=== PATIENT | male | born 1975 | race Caucasian/White ===

== ENCOUNTER 2017-06-01 20:32 | Emergency (ER) | payer MEDICAID, OTHER ==
[~2017-06-01] VITALS: Ht 182.9 cm; Wt 90.7 kg
[2017-06-01] MEDS ORDERED: BACITRACIN TOP OINT 1 UD PKG TOP ONE (21:45)
[2017-06-01 23:00] VITALS: BP 137/86
== END 2017-06-02 00:03 | disposition home or self-care (01) ==
LOC: EDBD 20:32 → EDUNIT# 20:32 → ER 20:32
DX: S52.124A Nondisplaced fracture of head of right radius, initial encounter for closed fracture (principal); S01.81XA Laceration without foreign body of other part of head, initial encounter; S43.401A Unspecified sprain of right shoulder joint, initial encounter; V43.52XA Car driver injured in collision with other type car in traffic accident, initial encounter; Y93.89 Activity, other specified; Y99.8 Other external cause status; Y92.488 Other paved roadways as the place of occurrence of the external cause
CPT/HCPCS: 29105; 70450; 70486; 71010; 72125; 73200

== ENCOUNTER 2020-04-18 19:33 | Inpatient (IN) | payer MEDICAID ==
[~2020-04-18] VITALS: Ht 185.4 cm; Wt 99.7 kg
[2020-04-18] MEDS ORDERED: NOREPINEPHRINE 8 MG/250ML KIT 250 ML IV ONE (19:53)
[2020-04-18] MEDS ORDERED: MIDAZOLAM DRIP 50 mg/50mL 0 ML IV ONE (19:53)
[2020-04-18] MEDS: NOREPINEPHRINE 8 MG/250ML KIT 250 ML IV SCH (20:00)
[2020-04-18] MEDS ORDERED: ATROPINE SULF 0.5 MG/5ML SYR ONE (20:27)
[2020-04-18 20:45] LABS: Albumin 3.3 g/dL (3.4-5.0); Anion Gap 21 (5-15); Blood Urea Nitrogen 18 mg/dL (7-18); Calcium 8.1 mg/dL (8.5-10.1); Carbon Dioxide 16 mmol/L (21-32); Chloride 102 mmol/L (98-107); Glucose 115 mg/dL (74-106); Magnesium 3.1 mg/dL (1.6-2.6); Sodium 139 mmol/L (136-145)
[2020-04-18] MEDS ORDERED: DOPamine 1600MCG/ML D5W 250 ML IV ONE (20:45)
[2020-04-18 20:47] LABS: Blood Alcohol < 3.0 mg/dL (0-5); GFR African American 26 mL/min; GFR Non-African American 21 mL/min
[2020-04-18 20:53] LABS: BUN/Creatinine Ratio 5.4; Potassium 5.9 mmol/L (3.5-5.1); Urine Bacteria NONE SEEN /hpf (None Seen); Urine Blood TRACE /uL (Negative); Urine Hyaline Cast FEW /lpf (0 - 2); Urine Specific Gravity 1.019 (1.001-1.035); Urine WBC 10 /hpf (0 - 3)
[2020-04-18 20:56] LABS: Alcohol, Urine < 3.0 mg/dL (0-10); Alkaline Phosphatase 76 U/L (45-117); Amphetamine Screen, Urine NEGATIVE (NEGATIVE); Barbiturate Scree,Urine NEGATIVE (NEGATIVE); Benzodiazephine Screen, Urine NEGATIVE (NEGATIVE); Bilirubin, Total 0.4 mg/dL (0.2-1.0); Cannabinoid Screen, Urine NEGATIVE (NEGATIVE); Cocaine Screen, Urine POSITIVE (NEGATIVE); Opiate Scree,Urine POSITIVE (NEGATIVE); Phencyclidine Screen, Urine NEGATIVE (NEGATIVE); Total Protein 6.8 g/dL (6.4-8.2)
[2020-04-18 20:57] LABS: Lactic Acid w/Reflex 13.8 mmol/L (0.4-2.0)
[2020-04-18 20:58] LABS: Hemoglobin 15.1 g/dL (13.5-17.5); Mean Corpuscular Hgb Conc. 31.5 g/dL (32.0-36.0); Mean Corpuscular Volume 95.2 fL (80.0-100.0); Platelet Count (auto) 217 10^3/uL (140-450); Red Blood Cells 5.04 10^6/uL (4.5-5.90); Red Cell Distribution Width 14.6 % (11.8-14.3); White Blood Cell 22.3 10^3/uL (4.4-10.8)
[2020-04-18] MEDS ORDERED: SODIUM BICARBONATE 8.4 % INJ 50ML VIAL IV ONE (21:00)
[2020-04-18 21:02] LABS: Basophils % (manual) 0 (0.0-2.0); Blast Cells 0; Eosinophils % (manual) 0 (0-7); Myelocytes % 0; Promyelocytes % 0; Reactive Lymphocytes 0
[2020-04-18 21:13] LABS: Alanine Aminotransferase 3201 U/L (16-61); Aspartate Aminotransferase 4868 U/L (15-37)
[2020-04-18 21:14] LABS: INR 1.33 (0.9-1.15); Partial Thromboplastin Time 38.1 sec (23.0-31.2)
[2020-04-18 21:45] VITALS: BP 99/71
[2020-04-18 21:49] LABS: Band Neutrophils % (manual) 5; Lymphocytes % (manual) 21 (10.0-50.0); Metamyelocytes % 1; Monocytes % (manual) 9 (0-12)
[2020-04-18] MEDS: SODIUM BICARBONATE 50ML VIAL 50 ML in D5W/SOD CHL 0.45% 1,000 ML IV SCH (21:55)
[2020-04-18] MEDS ORDERED: MIDAZOLAM DRIP 50 mg/50mL 50 ML IV SCH (22:40)
[2020-04-18] MEDS ORDERED: SODIUM CHLORIDE 0.9% 2,000 ML IV ONE (22:45)
[2020-04-18] MEDS ORDERED: ATROPINE SULF 1 MG/10ml SYR IV ONE (22:45)
[2020-04-19] VITALS (48 sets, daily range): BP systolic 91–128; BP diastolic 48–89
[2020-04-19] MEDS ORDERED: SODIUM CHLORIDE 0.9% 1,000 ML IV SCH (00:57)
[2020-04-19] MEDS ORDERED: ONDANSETRON HCL 4 MG/2 ML VIAL IV PRN (01:00)
[2020-04-19] MEDS ORDERED: MORPHINE SULF INJ 2 MG/ML SYRINGE 1ML IV PRN (01:00)
[2020-04-19] MEDS ORDERED: ACETAMINOPHEN 325 MG TAB PO PRN (01:00)
[2020-04-19] MEDS ORDERED: NITROGLYCERIN 0.4 MG SL TAB SL PRN (01:00)
[2020-04-19] MEDS ORDERED: ENOXAPARIN SOD 80 MG/0.8ML SYRINGE SC SCH (02:00)
--- NOTE | 2020-04-19 03:19 | NUR ---
RT Transport Note: Patient transported to ICU 108 with RN Franki. Patient transported to ICU via ambubag. Patient on vehicle monitor technician with alarms set and audible, ambu-bag/mask connected to 02 tank. Pt placed back on vent with previous settings. Transport completed without incident.
--- NOTE | 2020-04-19 03:25 | NUR ---
Admit to ICU from ER on vent NAUN GARCIA admitted to ICU via gurney on front desk monitor, intubated and being bagged by Respiratory Therapist. Patient transfered to bed, connected to mechanical ventilator by therapist, JUANA at bedside. Patient connected to ICU monitoring, weighed by bedscale, oriented to Shabbir Fields, primary RN, AND UNIT.
--- NOTE | 2020-04-19 04:00 | NUR ---
opening note received patient from ed. intubated on no sedation, tolerating ventilator. 7.0 ett 27@ lip ac 20 550vt peep 5 sating 92% on bedside monitor. st 127 on dopmine 11 levophed 30 with bp 110/80. right subclavian tlc cdi, transfusing medications. ogt patent. nino to gravity. skin intact. bed locked and in lowest position. for more information see interventions. for gtts and their titrations see iv spread sheet. all fall and safety precautions in place.
--- NOTE | 2020-04-19 04:19 | NUR ---
CONTACT FAMILY SPOKE WITH TEA, EX , RECEIVED CORRECT PASSWORD, UPDATED ON PATIENT STATUS. ALL QUESTIONS ADDRESSED AT THIS TIME.
--- NOTE | 2020-04-19 05:15 | NUR ---
[facility] [employer] sales representative at bedside, updated on patient status.
[2020-04-19] MEDS: NOREPINEPHRINE 8 MG/250ML KIT 250 ML IV SCH ×2 (05:20→09:15)
--- NOTE | 2020-04-19 06:48 | NUR ---
CALLED HOSPITALIST SPOKE WITH KIRSTIN. INFORMED MD THAT DNR FORM IN CHART WAS NOT SIGNED BY MD BUT BY TWO NURSES. MD AWARE, WANTING TO FOLLOW FAMILY WISHES. AWAITING AM MD TO SIGN CODE STATUS FORM
--- NOTE | 2020-04-19 06:56 | NUR ---
FAMILY CONTACT RECEIVED CALL FROM IDA AND CHRISTIAN ANGEL, UPDATED ON PATIENT STATUS. ALL QUESTIONS ADDRESSED AT THIS TIME. CALL BACK NUMBER [phone]. IDA AND CHRISTIAN EXPRESSED THAT THEY WANT TO SPEAK WITH MD ABOUT A TERMINAL WEAN THIS AFTERNOON.
--- NOTE | 2020-04-19 07:30 | NUR ---
Opening Shift Note Assumed care of patient, unresponsive, ET to mech vent. No S/S of distress/SOB or pain. OGT to LIS draining dark brown, minimal amount. See interventions for complete assessment. Spoke to patient's mother Manuela Cuevas and step father Matthieu Cuevas with another RN Cruz regarding patient's code status and family stated they want patient full DNR, no chest compression in case patient's hear stop beating. Paged Hospitalist. Awaiting call back. Bed locked on low position, side rails up x2, bed alarms on at all times, will continue to monitor for changes Q1hr and PRN.
--- NOTE | 2020-04-19 09:26 | NUR ---
Received call from patient's step father Matthieu who's able to provide password. Updated on patient's status and POC, verbalized understanding. All questions and concerns addressed.
[2020-04-19] MEDS: SODIUM BICARBONATE 50ML VIAL 50 ML in D5W/SOD CHL 0.45% 1,000 ML IV SCH (09:28)
--- NOTE | 2020-04-19 09:50 | NUR ---
Dr Duncan at bedside, updated on patient's status. Patient seen and examined. Spoke to Matthieu and Ansienna over the phone regarding patient's code status. Family agreed with MD that patient is DNR, Code status form signed by Dr Duncan.
[2020-04-19] MEDS ORDERED: DOCUSATE SOD 100 MG CAP PO SCH (10:00)
[2020-04-19] MEDS ORDERED: CARVEDILOL 3.125 MG TAB PO SCH (10:00)
[2020-04-19] MEDS ORDERED: LISINOPRIL 10 MG TAB PO SCH (10:00)
[2020-04-19] MEDS ORDERED: CLOPIDOGREL BISULFATE 75 MG TAB PO SCH (10:00)
[2020-04-19] MEDS ORDERED: ASPirin 81 mg TAB PO SCH (10:00)
[2020-04-19] MEDS ORDERED: LINEZOLID 600MG/300ML 300 ML IV SCH (10:45)
--- NOTE | 2020-04-19 11:00 | NUR ---
Received call from Mago, spoke to Dr Duncan over the phone regarding patient's code status. Received verbal order from Dr Duncan to place order for terminal wean. Orders read back and verified. Will carry out.
[2020-04-19 11:01] LABS: Albumin 3.2 g/dL (3.4-5.0); Calcium 6.3 mg/dL (8.5-10.1)
--- NOTE | 2020-04-19 11:17 | NUR ---
Called [facility], spoke to John Paul and informed him regarding plan to terminally wean patient. John Paul verbalized understanding and stated "This patient has been called in last night but patient is not a candidate for organ donation. Please call us back fro time of ." Read back and verified.
[2020-04-19 11:18] LABS: BUN/Creatinine Ratio 6.3; Bilirubin, Total 0.8 mg/dL (0.2-1.0)
[2020-04-19 11:40] LABS: Potassium 6.4 mmol/L (3.5-5.1)
--- NOTE | 2020-04-19 11:45 | NUR ---
Paged Dr Duncan regarding patient's potassium level of 6.4. Called back and orders received, read back and verified. Will carry out.
[2020-04-19] MEDS ORDERED: SODIUM BICARBONATE 8.4% INJ 50ML SYRINGE IV ONE (12:00)
[2020-04-19] MEDS ORDERED: DEXTROSE (50%) 50ML SYRG IV ONE (12:00)
[2020-04-19] MEDS ORDERED: PIPERACILLIN-TAZOB 2.25GM 50 ML IV SCH (12:00)
[2020-04-19] MEDS ORDERED: InsuLIN REG 1unit/0.01ml Soln (100units/ml) IV ONE (12:00)
[2020-04-19] MEDS ORDERED: CALCIUM GLUC 4.65meq/50ml D5AE 50 ML IV ONE (12:00)
--- NOTE | 2020-04-19 12:00 | NUR ---
Received call from Mago who's able to provide password. Stated they want to come at 01:30 pm for the Terminal wean.
--- NOTE | 2020-04-19 12:50 | NUR ---
Covid swab sent to lab.
--- NOTE | 2020-04-19 13:35 | NUR ---
Matthieu and Aniece at bedside with patient's 16 year daughter and other family members.
[2020-04-19] MEDS ORDERED: MORPHINE SULF INJ 2 MG/ML SYRINGE 1ML IV ONE (14:00)
--- NOTE | 2020-04-19 14:30 | NUR ---
Dr. Duncan spoke with family regarding wishes to terminally wean patient. Family understands all aspects of weaning and understands that the outcome is . All questions and concerns addressed by Provider and by nursing. Pastoral care offered. Family at bedside. Terminal wean done by Venita VILLALBA
--- NOTE | 2020-04-19 14:30 | NUR ---
TERMINAL EXTUBATION Terminally extubated pt as ordered, with JOLYNN Antunez at bedside. Pt with no spontaneous breaths post-extubation.
--- NOTE | 2020-04-19 14:54 | NUR ---
No pulse, no spontaneous respiration, no BP, paged Dr Duncan. Awaiting call back.
--- NOTE | 2020-04-19 15:05 | NUR ---
Patient's pronounce by Dr Duncan.
--- NOTE | 2020-04-19 15:09 | NUR ---
Called [facility], informed of patient's , spoke to Ambrosio, Awaiting call back.
--- NOTE | 2020-04-19 15:11 | NUR ---
Called [facility], spoke to Dana, informed of patient's , needed information provided, body released [id number].
--- NOTE | 2020-04-19 16:27 | NUR ---
Received call from Mohel, spoke to Gave and stated " Because it's a possible drug overdose, go ahead and send the body to your morgue because it will take a while for us to call you back and if you have any admission blood specimen please save it." Read back and verified. carry in worker Franklin and Associate School Psychologist Cheryl informed. Spoke to Dragan from lab and informed to save patient's blood specimen on admission per Mohel's instruction, verbalized understanding.
--- NOTE | 2020-04-19 17:52 | NUR ---
Spoke to Matthieu over the phone, updated on patient's status. Matthieu stated they already spoke to [facility].
[2020-04-19] MEDS ORDERED: ENOXAPARIN SOD 100 MG/1 ML SYRINGE SC SCH (18:00)
--- NOTE | 2020-04-19 18:47 | NUR ---
Awaiting call from Consulting Software Engineer.
--- NOTE | 2020-04-19 19:40 | NUR ---
spoke with collection coordinator is collection coordinator case run number [id number], spoke with collection coordinator emilia bishop
--- NOTE | 2020-04-19 21:32 | NUR ---
PATIENT DISCHARGED TO [facility]
[2020-04-19] MEDS ORDERED: ATORVASTATIN 20 MG TAB PO SCH (22:00)
== END 2020-04-19 15:05 | disposition expired | DRG 816 ==
LOC: ER 19:33 → EDBD 19:33 → TELE 19:34 → ICU WEST 04-19 03:17
PROVIDERS: ADMIT Hospitalist; ATTEND Hospitalist
PROC: 5A1935Z Respiratory Ventilation, Less than 24 Consecutive Hours (ICD-10-PCS; 2020-04-18)
PROC: 0BH17EZ Insertion of Endotracheal Airway into Trachea, Via Natural or Artificial Opening (ICD-10-PCS; 2020-04-18)
PROC: 05HY33Z Insertion of Infusion Device into Upper Vein, Percutaneous Approach (ICD-10-PCS; 2020-04-18)
PROC: 5A12012 Performance of Cardiac Output, Single, Manual (ICD-10-PCS; principal; 2020-04-19)
DX: T40.1X1A Poisoning by heroin, accidental (unintentional), initial encounter (principal); A41.9 Sepsis, unspecified organism; D68.9 Coagulation defect, unspecified; E87.5 Hyperkalemia; F17.200 Nicotine dependence, unspecified, uncomplicated; I21.4 Non-ST elevation (NSTEMI) myocardial infarction; I46.9 Cardiac arrest, cause unspecified; J69.0 Pneumonitis due to inhalation of food and vomit; J96.91 Respiratory failure, unspecified with hypoxia; K72.90 Hepatic failure, unspecified without coma; K74.60 Unspecified cirrhosis of liver; K76.7 Hepatorenal syndrome; N17.0 Acute kidney failure with tubular necrosis; N18.9 Chronic kidney disease, unspecified; R65.20 Severe sepsis without septic shock; Z51.5 Encounter for palliative care; Z66 Do not resuscitate; Y92.89 Other specified places as the place of occurrence of the external cause; Z20.828 Contact with and (suspected) exposure to other viral communicable diseases; E87.2 Acidosis
CPT/HCPCS: 36415; 36600; 70450; 71045; 72125; 80053; 80307; 80320; 81001; 82805; 82962; 83605; 83735; 83880; 84443; 84484; 85007; 85027; 85379; 85610; 85730; 87040; 87070; 87076; 87077; 87081; 87205; 92950; 93005; 94002; 94003; 99291; 99292; G0378; J0461; J2250